=== PATIENT | male | born 1990 | race Caucasian/White ===

== ENCOUNTER 2023-05-06 01:37 | Emergency (ER) | payer SELFPAY | END 2023-05-06 03:09 | disposition home or self-care (01) | LOC: MADERS 01:37 | DX: K91.840 Postprocedural hemorrhage of a digestive system organ or structure following a digestive system procedure (principal); F17.210 Nicotine dependence, cigarettes, uncomplicated | CPT/HCPCS: 99283 ==

== ENCOUNTER 2023-05-23 14:42 | Emergency (ER) | payer SELFPAY | END 2023-05-23 15:50 | disposition home or self-care (01) | LOC: MADERS 14:42 | DX: K64.9 Unspecified hemorrhoids (principal); Z87.891 Personal history of nicotine dependence | CPT/HCPCS: 99282 ==

== ENCOUNTER 2023-11-19 08:50 | Emergency (ER) | payer OTHER, SELFPAY ==
[2023-11-19 09:20] LABS: Bilirubin Negative (Negative); Blood, Urine Moderate (Negative); Clarity Clear (Clear); Glucose, Urine (Dipstick) Negative (Negative); Ketone, Urine Negative (Negative); Leukocyte Negative (Negative); Nitrite Negative (Negative); Protein, Urine (Dipstick) Negative (Neg-Trace); Urobilinogen 0.2 mg/dL (Less than 2)
[2023-11-19 09:23] LABS: Specific Gravity, Urine 1.021 (1.002-1.036)
[2023-11-19 09:30] LABS: Bacteria/HPF Rare-Few HPF (None Seen); CAUTI Indications for Culture Acute Hematuria; Squamous Epithelial 0-3 HPF (0-3); WBC/HPF 0-3 HPF (0-3)
[2023-11-19 09:31] LABS: Urine Culture Reflex No No
== END 2023-11-19 09:44 | disposition home or self-care (01) ==
LOC: MADERS 08:50
DX: S39.94XA Unspecified injury of external genitals, initial encounter (principal); R31.9 Hematuria, unspecified; Z87.891 Personal history of nicotine dependence; Z79.899 Other long term (current) drug therapy; X58.XXXA Exposure to other specified factors, initial encounter
CPT/HCPCS: 81001; 99283